=== PATIENT | female | born 1955 | race African-American/Black ===

== ENCOUNTER 2017-02-17 21:10 | Emergency (ER) | payer MEDICARE, OTHER ==
[~2017-02-17] VITALS: Ht 165.1 cm; Wt 112.0 kg
[2017-02-17] MEDS ORDERED: OXYMETAZOLINE HCL 0.05% NAS 1 SPRAY BTL STA (21:45)
[2017-02-17 22:09] LABS: BASOPHILS % 0.4 % (0.0-1.0); EOSINOPHILS % 0.4 % (0.0-6.0); HEMATOCRIT 36.7 % (34.2-44.1); HEMOGLOBIN 11.7 g/dL (12.0-16.0); LYMPHOCYTES # (AUTO) 0.8 (1.0-3.2); LYMPHOCYTES % 13.7 % (18.0-39.1); MEAN CORPUSCULAR HEMOGLOBIN 24.5 pg (28-32); MEAN CORPUSCULAR HGB CONC 31.9 g/dL (31-35); MEAN CORPUSCULAR VOLUME 76.9 fL (81-99); MONOCYTES # (AUTO) 0.8 (0.2-0.8); MONOCYTES % 13.9 % (4.4-11.3); NEUTROPHILS # (AUTO) 3.9 (2.1-6.9); NEUTROPHILS % 71.2 % (38.7-80.0); PLATELET COUNT 275 x10e3/uL (140-360); RED BLOOD COUNT 4.77 x10e6/uL (3.6-5.1); RED CELL DISTRIBUTION WIDTH 16.6 % (11.7-14.4)
[2017-02-17 22:18] LABS: INR 1.31
[2017-02-17 22:19] LABS: PARTIAL THROMBOPLASTIN TIME 47.8 seconds (23.8-35.5)
--- NOTE | 2017-02-17 22:26 | Diagnostic Imaging Report ---
CHEST SINGLE (PORTABLE), 02/17/2017 9:45 PM Technique: CHEST SINGLE (PORTABLE) Comparison: None available. Clinical history: epistaxis on Coumadin Findings: See Impression Impression: Limited by portable technique 1. Mildly enlarged cardiac silhouette 2. No consolidation or edema. 3. No pleural effusion or pneumothorax. Signed by: Dr Anahi Joaquin MD on 02/17/2017 10:22 PM
[2017-02-17 22:29] LABS: ALANINE AMINOTRANSFERASE 15 IU/L (0-55); ALBUMIN 3.8 g/dL (3.5-5.0); ALBUMIN/GLOBULIN RATIO 0.8 (0.8-2.0); ALKALINE PHOSPHATASE 118 IU/L (40-150); ANION GAP 14.7 mmol/L (8-16); BLOOD UREA NITROGEN 10 mg/dL (7-26); BUN/CREATININE RATIO 9 (6-25); CALCIUM 9.5 mg/dL (8.4-10.2); CARBON DIOXIDE 28 mmol/L (22-29); CHLORIDE 98 mmol/L (98-107); CREATINE KINASE 216 IU/L (29-168); CREATININE, SERUM 1.11 mg/dL (0.57-1.11); EST GLOMERULAR FILTRATION RATE > 60 ML/MIN (60-); GLUCOSE 215 mg/dL (74-118); POTASSIUM 3.7 mmol/L (3.5-5.1); SODIUM 137 mmol/L (136-145)
[2017-02-17 22:35] LABS: TROPONIN I 0.007 ng/mL (0-0.300)
[2017-02-18 00:38] VITALS: BP 135/54
== END 2017-02-18 00:53 | disposition home or self-care (01) ==
LOC: ER 21:10
DX: R04.0 Epistaxis (principal); I10 Essential (primary) hypertension; E11.9 Type 2 diabetes mellitus without complications; I48.91 Unspecified atrial fibrillation
CPT/HCPCS: 36415; 71010; 80053; 82550; 82553; 84484; 85025; 85610; 85730; 86850; 86900; 99283